=== PATIENT | male | born 1945 | race Caucasian/White ===

== ENCOUNTER 2018-03-05 08:30 | Day surgery (SDC) | payer OTHER ==
[~2018-03-05 08:30] MED LIST: SYNTHROID50 MCG PO
== END 2018-03-05 16:40 | disposition home or self-care (01) ==
LOC: AMB-ENDOS 08:30
DX: D12.4 Benign neoplasm of descending colon (principal); D12.3 Benign neoplasm of transverse colon; K64.1 Second degree hemorrhoids

== ENCOUNTER 2019-09-16 08:56 | Day surgery (SDC) | payer OTHER | END 2019-09-16 14:30 | disposition home or self-care (01) | LOC: AMB-ENDOS 08:56 | DX: D12.4 Benign neoplasm of descending colon (principal); K57.30 Diverticulosis of large intestine without perforation or abscess without bleeding; K64.1 Second degree hemorrhoids ==